=== PATIENT | female | born 1975 | race Caucasian/White ===

== ENCOUNTER 2016-07-26 19:51 | Emergency (ER) | payer MEDICAID ==
[~2016-07-26 19:51] MED LIST: COL100 PO; LEVAQUIN500 MG PO; NORCO1 TA2 PO
[2016-07-26 20:45] LABS: BASOPHIL % 0.5 % (0-2); PLATELET COUNT 282 x10^3mcL (130-400); RED CELL DISTRIBUTION WIDTH 14.1 % (11.5-14.5)
[2016-07-26 20:58] LABS: CALCIUM 8.8 mg/dL (8.5-10.1); CARBON DIOXIDE 26.3 mmol/L (21-32); CHLORIDE SERUM 103 mmol/L (98-107); CREATININE SERUM 0.8 mg/dL (0.6-1.0); GFR1 > 60 mL/min; GLUCOSE SERUM 106 mg/dL (74-106); POTASSIUM SERUM 3.8 mmol/L (3.5-5.1); SODIUM SERUM 138 mmol/L (136-145)
[2016-07-26 21:06] LABS: ALBUMIN 3.4 g/dL (3.4-5.0); ALKALINE PHOSPHATASE 80 U/L (46-116); ALT/SGPT 19 U/L (14-59); AMYLASE 54 U/L (25-115); AST/SGOT 9 U/L (15-37); BILIRUBIN TOTAL 0.2 mg/dL (0.20-1.00); LIPASE 127 IU/L (73-393); TOTAL PROTEIN, SERUM 7.8 g/dL (6.4-8.2)
[2016-07-26 23:10] VITALS: BP 129/96
== END 2016-07-26 23:10 | disposition home or self-care (01) ==
LOC: ED 19:51
PROVIDERS: Emergency Medicine
DX: K29.00 Acute gastritis without bleeding (principal); Z90.49 Acquired absence of other specified parts of digestive tract
CPT/HCPCS: 83880; Q0162

== ENCOUNTER 2018-10-07 00:07 | Emergency (ER) | payer SELFPAY ==
[~2018-10-07] VITALS: Ht 152.4 cm; Wt 106.1 kg
[2018-10-07 00:13] VITALS: Ht 152.4 cm; Wt 106.1 kg
[2018-10-07 03:12] VITALS: BP 144/78
== END 2018-10-07 03:12 | disposition home or self-care (01) ==
LOC: ED 00:07
DX: J03.90 Acute tonsillitis, unspecified (principal); Z90.49 Acquired absence of other specified parts of digestive tract
CPT/HCPCS: J0561; J1100